=== PATIENT | female | born 1965 | race Caucasian/White ===

== ENCOUNTER 2016-12-04 14:51 | Emergency (ER) | payer OTHER ==
[~2016-12-04] VITALS: Ht 162.6 cm; Wt 81.8 kg
[~2016-12-04 14:51] MED LIST: NOMED
[2016-12-04 14:54] VITALS: BP 139/96; PULSE 90; RESP 18
--- NOTE | 2016-12-04 15:01 | ED.REPORT ---
HPI-Chest Pain 40 and Over Date of Service Dec 04, 2016 ED Provider: Dr. Valeriy Narvaez MD A 51 year old female with no pertinent medical history presents to the ED complaining of chest pain that began 4 days ago. Her pain is often associated with increased stress and she believes her symptoms are likely due to stress and anxiety. Patient has also been experiencing SOB and fatigue. The pain radiates down her arm and is exacerbated by movement. She reports that her children and work environment have become increasingly stressful. She denies exacerbation of pain with exertion or any recent periods of prolonged immobilization. She denies history of hypertension, hyperlipidemia, diabetes, heart disease, or previous PE. Her last menstrual cycle was one month ago. Patient denies any dysuria, abdominal pain, fever or chills. Nursing Notes Stated Complaint: CHEST PAIN Chief Complaint: Chest Pain Nursing Notes Reviewed: Yes Allergies: Coded Allergies: No Known Allergies (Verified , 02/16/08) Scheduled PRN Lorazepam (Ativan) 0.5 Mg Tablet 0.5 MG PO HS PRN PRN For Insomnia Miscellaneous Medications No Historical Medication (No Historical Medication) Ea General Time Seen by MD: 15:01 Chief Complaint Chest pain Hx Obtained From: Patient Arrived By: Walk-in Sudden in Onset?: No Onset Occurred: 1 - 4 hours ago Symptom Duration: Since onset Location: : Chest left: Chest right Quality: Painful Radiation: : Arm left Migration/Movement: Reports: None Severity: Current: Mild Severity: Maximum: Moderate Associated with: Reports: Shortness of Breath, Denies: Fever Pertinent Negative: Pt denies other symptoms Exacerbated by: Movement Recent Healthcare: No recent doctor visit, No recent hospitalization Risk Factors )( CAD Risk Stratification No Diabetes mellitus, No Hyperlipidemia, No Hypertension Risk factors reviewed )( TAD Risk Stratification No Hypertension Risk factors reviewed )( PE Risk Stratification Risk factors reviewed Past Medical History Past Medical History Denies Denies: Diabetes mellitus, Hyperlipidemia, Hypertension Past Surgical History None reported. Smoking History Never Smoker Social History Alcohol Use: Denies alcohol use Drug Use: Denies drug use Other Social History: Good social support, Local resident Ambulatory Status Independent Review of Systems Constitutional: Reports: Fatigue, Denies: Chills, Fever Respiratory: Reports: Shortness of breath Cardiovascular: Reports: Chest pain GI: Denies: Abdominal pain, Nausea, Vomiting Neurologic: Denies: Change LOC Psychiatric: Reports: Anxiety, Stress Complete sys rev & neg: except as marked. Female: Denies: Dysuria Physical Exam Initial Vital Signs Vital Signs (First) Date Time Temp Pulse Resp B/P Pulse Ox O2 Delivery O2 Flow Rate FiO2 12/04/16 14:54 36.4 90 18 139/96 12/04/16 16:06 98 Room Air Initial VS: Reviewed Head / Eyes: Atraumatic, Normocephalic, PERRL Extremities: Vascular intact, Neuro intact, No swelling (No calf swelling) , No tenderness (No calf tenderness) Skin: Warm, Dry, No cyanosis Neurologic: Alert, Oriented, Nonfocal Psychiatric: Mood/affect normal, Behavior normal, Normal thought content General/Constitutional: Awake, Alert, No acute distress Respiratory / Chest: Atraumatic, Breath sounds NL, Breath sounds = bilat, No respiratory distress, No wheezing RESPIRATORY: No crackles Cardiovascular: Heart rate NL, Regular rhythm, Heart sounds NL, No gallop, No murmurs, No rubs, Peripheral circulation NL, Pulses = bilaterally (Good distal pulses ) Abdomen: Atraumatic, Soft, Non-tender, No distention Interpretation & Diagnostics Lab Results Interpretation Result Diagram: 12/04/16 1550 12/04/16 1550 Test 12/04/16 15:50 White Blood Count 6.6th/mm3 (3.8-10.1) Red Blood Count 4.37mil/mm3 (3.90-5.20) Hemoglobin 13.5g/dL (12.0-15.6) Hematocrit 41.3% (35.0-46.0) Mean Corpuscular Volume 94.5fL (81-100) Mean Corpuscular Hemoglobin 30.9pg (27.0-35.0) Mean Corpuscular Hemoglobin Concent 32.7% (32.0-37.0) Red Cell Distribution Width 12.6% (12.3-15.4) Platelet Count 254bil/L (150-400) Neutrophils (%) (Auto) 63.4% (40-74) Lymphocytes (%) (Auto) 24.7% (14-46) Monocytes (%) (Auto) 9.0% (4-12) Eosinophils (%) (Auto) 1.7% (0-5) Basophils (%) (Auto) 0.9% (0-3) Hold Blue Top Tube Received (Received) Sodium Level 139mEq/L (134-144) Potassium Level 3.9mEq/L (3.5-5.2) Chloride Level 104mEq/L (97-108) Carbon Dioxide Level 19mmol/L (18-29) Blood Urea Nitrogen 13mg/dL (6-24) Creatinine 0.62mg/dL (0.57-1.00) Estimat Glomerular Filtration Rate 147mL/min (>59) Glucose Level 98mg/dL (60-99) Calcium Level 9.4mg/dL (8.5-10.1) Magnesium Level 2.2mg/dL (1.6-2.6) Total Bilirubin 0.3mg/dL (0.0-1.2) Aspartate Amino Transf (AST/SGOT) 13U/L (0-50) Alanine Aminotransferase (ALT/SGPT) 10U/L (0-32) Alkaline Phosphatase 54U/L (25-150) Troponin T < 0.010ug/L (0.0-0.011) Total Protein 6.9g/dL (6.4-8.4) Albumin 4.4g/dL (3.4-5.0) Hold Wheeler Top Tube Received (Received) Hold Ingram Top Tube Received (Received) ECG Interpretation ECG Interpretation: Sinus rhythm Rate 69 bpm Time: 15:22 Interpreted by: ED physician X-Ray Chest Interpretation Chest Xray Interpretation: IMPRESSION: No acute cardiopulmonary disease. Dictated by: Oral Boudreaux M.D. on 12/04/2016 at 15:36 Interpretation / Wet Read by: Interpret - Radiologist Re-Eval/Medical Decision Med Decision/Clinical Course In summary, the patient is a generally healthy 51-year-old female who presents with 4 days of intermittent chest pressure and shortness of breath that occurs while she is at home and dealing with her teenaged children arguing with each other. She reports multiple stressors recently including not getting enough hours at work to pay bills. She is currently symptom-free but reports that her symptoms, and go always in association with stressful situations at home. She has no cardiac history. Here in the emergency department she is afebrile with stable vital signs and in no apparent distress. 324 mg of aspirin were given. EKG obtained as above demonstrated no acute ischemic changes. Initial screening troponin is negative. CBC and CMP are unremarkable. My suspicion for acute coronary syndrome is extremely low and I do not feel that further workup is immediately indicated. The patient is without tachycardia, tachypnea or hypoxia and she has no recent major risk factors for development of pulmonary embolism. I do not feel that workup for pulmonary embolism is indicated. No evidence of pneumonia or pneumothorax. I offered the services of our school social worker however the patient declined. I discussed with the patient taking some time for herself to relax and she will try to send her kids to stay with family tonight. She will follow-up with her primary care physician. Follow-up and return precautions were reviewed in detail and the patient was discharged in good condition. Time of Eval: 16:52 Patient Status: Condition improved Re-Evaluation/Progress Note: Patient is rechecked. She denies opportunity to speak with [facility]. She is informed of her lab results and diagnosis. All of the patient's questions are addressed. She understands and agrees with the treatment plan to follow up with her primary care physician. Counseled Regarding: Diagnosis, Lab results, Need for follow-up, When/why to return to ED Discharge & Departure Primary Impression: Non-cardiac chest pain Additional Impression: Panic attack Disposition: Home Discharge Condition All VS Reviewed: Yes Condition: Improved Patient Instructions: Generalized Anxiety Disorder (ED) Additional Instructions: Thank you for seeking care at the emergency room. It is difficult for us to make definitive diagnoses in the ED but we believe that you are experiencing chest pain related to anxiety and stress. Our primary goal today in the ED was to evaluate you for any life-threatening conditions. Your evaluation was reassuring. You should follow-up with your primary doctor in the next week. I recommend trying to take some time for yourself away from your kids at home. You need to prioritize yourself sometimes and if that means taking a walk or sending your kids to a relative's house this is okay. You should return to the ED immediately if you develop worsening symptoms, thoughts of harming yourself/others, fevers, vomiting, cough, shortness of breath, chest pain, lightheadedness, weakness or any other concerning signs or symptoms. Thank you for letting us partake in your care today. Referrals: Deepak Morris MD (PCP) Scribe Attestation Portions of this note were transcribed by Lisa Bueno. I, Dr. Narvaez personally performed the history, physical exam and medical decision-making; I reviewed and confirmed the accuracy of the information in the transcribed note. Signed by: Jad Self, 12/04/16 [id number]. copies to: Deepak Morris MD,Valeriy Mesa MD Dec 04, 2016 15:01 LISA BUENO Dec 04, 2016 15:10 LISA BUENO Dec 04, 2016 15:10
--- NOTE | 2016-12-04 15:38 | DRSVH ---
PROCEDURE: X-RAY CHEST, TWO VIEWS ([id number]) INDICATIONS: 51-year-old female with chest pain for 4 days. TECHNIQUE: 2 views of the chest were acquired. COMPARISON: [facility], , CHEST 1VW (PORTABLE), 11/25/2010, 10:41. [facility], , CHEST 1VW (PORTABLE), 10/18/2009, 18:13. [facility], , CHEST 2VW, 07/21/2008, 10:16. FINDINGS: Surgical changes and devices: None. Lungs and pleura: No pleural effusions or pneumothorax. Lungs are clear. Mediastinum: Mediastinal contours are normal. Heart size is normal. Bones and chest wall: No suspicious bony abnormalities. Soft tissues appear unremarkable. IMPRESSION: No acute cardiopulmonary disease. Dictated by: Oral Boudreaux M.D. on 12/04/2016 at 15:36 Approved by: Oral Boudreaux M.D. on 12/04/2016 at 15:37
[2016-12-04 16:01] LABS: BASOPHILS % (AUTO) 0.9 % (0-3); EOSINOPHILS % (AUTO) 1.7 % (0-5); Mean Corpuscular Hemoglobin 30.9 pg (27.0-35.0); Mean Corpuscular Volume 94.5 fL (81-100); NEUTROPHILS % (AUTO) 63.4 % (40-74); Platelet Count 254 bil/L (150-400)
[2016-12-04 16:06] VITALS: BP 125/81; PULSE 67; RESP 18; O2SAT 98
[2016-12-04 16:25] LABS: TROPONIN T < 0.010 ug/L (0.0-0.011)
[2016-12-04 16:32] VITALS: BP 121/67; PULSE 64; RESP 16; O2SAT 98
[2016-12-04 16:35] LABS: Magnesium 2.2 mg/dL (1.6-2.6)
[2016-12-04] MEDS ORDERED: LORA-302 PO (17:10)
[2016-12-04 17:17] VITALS: BP 126/72; PULSE 67; RESP 20; O2SAT 100
== END 2016-12-04 17:17 | disposition home or self-care (01) ==
LOC: SED 14:51
DX: R07.89 Other chest pain (principal); F41.0 Panic disorder [episodic paroxysmal anxiety]